=== PATIENT | male | born 1950 | race Caucasian/White ===

== ENCOUNTER 2024-03-25 09:04 | Observation (INO) ==
[2024-03-25] MEDS ORDERED: NS 1,000 ML IV 1,000 ML ONE (09:10)
[2024-03-25] MEDS: NS 1,000 ML IV 1,000 ML IV ONE (09:19)
--- NOTE | 2024-03-25 09:22 | DR.DIZZY ---
HPI Time seen Time Seen by Provider: 03/25/24 09:21 Complaint Chief Complaint Doctor Comments: Patient was discharged from the hospital on 18 March for dehydration he stated he was sent home felt better the next day after he began he started developing some weakness and lethargy and decreased appetite. Feels that he dehydrated again. Context Stroke Symptoms: None PMH PMH Past Surgical History: Yes Surgical History: Bowel Resection Family History Family Medical History: Cancer ROS Review of Systems Constitutional: Malaise, Weakness, Fatigue and Loss of Appetite Eyes: No Symptoms Reported ENTM: No Symptoms Reported Respiratoy: No Symptoms Reported Cardiovascular: No Symptoms Reported Gastrointestinal/Abdominal: No Symptoms Reported Genitourinary: No Symptoms Reported Neurological: No Symptoms Reported Musculoskeletal: No Symptoms Reported Integumentary: No Symptoms Reported Hematologic/Lymphatic: No Symptoms Reported Endocrine: No Symptoms Reported Psychiatric: Depression PE Vital Signs Vitals: Vital Signs Temperature 98.2 F Pulse Rate 85 Pulse Rate 82 Pulse Rate 82 Pulse Rate 90 Pulse Rate 80 Pulse Rate 88 Pulse Rate 88 Pulse Rate 79 Pulse Rate 83 Pulse Rate 85 Pulse Rate 83 Pulse Rate 85 Pulse Rate 83 Pulse Rate 83 Pulse Rate 82 Pulse Rate 81 Pulse Rate 82 Pulse Rate 81 Pulse Rate 87 Pulse Rate 83 Pulse Rate 89 Pulse Rate 103 Pulse Rate 128 Pulse Rate 104 Respiratory Rate 20 Respiratory Rate 19 Respiratory Rate 17 Respiratory Rate 20 Respiratory Rate 20 Respiratory Rate 19 Respiratory Rate 19 Respiratory Rate 20 Respiratory Rate 20 Respiratory Rate 17 Respiratory Rate 19 Respiratory Rate 19 Respiratory Rate 20 Respiratory Rate 19 Respiratory Rate 18 Respiratory Rate 18 Respiratory Rate 18 Respiratory Rate 17 Respiratory Rate 22 Respiratory Rate 16 Respiratory Rate 24 Respiratory Rate 24 Respiratory Rate 20 Respiratory Rate 25 Blood Pressure 100/70 Blood Pressure 149/77 Blood Pressure 104/67 Blood Pressure 108/76 Blood Pressure 105/67 Blood Pressure 106/64 Blood Pressure 112/67 Blood Pressure 113/69 Blood Pressure 119/73 Blood Pressure 111/76 Blood Pressure 111/76 Blood Pressure 117/85 O2 Sat by Pulse Oximetry 96 O2 Sat by Pulse Oximetry 95 O2 Sat by Pulse Oximetry 96 O2 Sat by Pulse Oximetry 96 O2 Sat by Pulse Oximetry 96 O2 Sat by Pulse Oximetry 96 O2 Sat by Pulse Oximetry 96 O2 Sat by Pulse Oximetry 96 O2 Sat by Pulse Oximetry 96 O2 Sat by Pulse Oximetry 96 O2 Sat by Pulse Oximetry 97 O2 Sat by Pulse Oximetry 96 O2 Sat by Pulse Oximetry 96 O2 Sat by Pulse Oximetry 96 O2 Sat by Pulse Oximetry 98 O2 Sat by Pulse Oximetry 97 O2 Sat by Pulse Oximetry 98 O2 Sat by Pulse Oximetry 99 O2 Sat by Pulse Oximetry 99 O2 Sat by Pulse Oximetry 98 O2 Sat by Pulse Oximetry 99 O2 Sat by Pulse Oximetry 94 O2 Sat by Pulse Oximetry 98 O2 Sat by Pulse Oximetry 99 General Limitations: Physical Limitation (weak due to dehydration) General Appearance: In Distress (mild distress) Head Head Exam: Normal Inspection, Atraumatic and Normocephalic Eyes Eye exam: Normal Appearance, PERRL and EOMI Pupils: Regular, Round: Bilateral ENT ENT Exam: Normal Exam and Normal Oropharynx Neck Neck Exam: Normal Inspection, Full ROM and Trachea Midline Chest Chest Inspection: Normal Inspection, Symmetric Chest Wall Rise and Tenderness Respiratory Respiratory Exam: Normal Lung Sounds Bilat Respiratory Exam: Bilateral: Clear to Auscultation Cardiovascular Cardiovascular Exam: Regular Rate and Normal Rhythm Abdominal Exam Abdominal Exam: Normal Inspection, Normal Bowel Sounds and Soft Rectal Rectal Exam: Deferred Extremeties Extremities Exam: Normal Inspection Back Back Exam: Normal Inspection Neurologic Neurological Exam: Alert, Oriented X3 and CN II-XII Intact Patient Oriented To: Person, Place and Time Speech: Fluid Speech Cranial Nerve Exam: EOM Function (II, III, IV, ): Normal Psychiatric Psychiatric Exam: Depressed Skin Skin Exam: Warm, Dry and Intact MDM Differential Diagnosis Differential Diagnosis: Dehydration, Electrolyte disorder and Other (renal insufficiency,malnutrition) COURSE Treatment Treatment: Patient may relatively stable during ER visit. We did give him a 1 L bolus of normal saline and he did seem to become less lethargic after that. We did lab work showing that he did have a BUN of 50 and creatinine was 2.74 and his GFR was 24 with this presentation of the patient numbers change a lot since last week with his BUN and creatinine going up so we did consult with the on- call physician Dr. Henry and we are going to admit the patient to observation for renal insufficiency, dehydration and malnutrition. The patient was told of the intent to admit to observation and was agreeable to the admission. ROR Labs Reviewed Laboratory Results Reviewed?: Yes 03/25/24 09:14 03/25/24 09:14 Laboratory: WBC 7.5 X10^3/uL (3.6-10.0) 03/25/24 09:14 RBC 4.56 X10^6/uL (4.7-6.0) L 03/25/24 09:14 Hgb 14.6 g/dL (13.5-18.0) 03/25/24 09:14 Hct 40.6 % (42.0-54.0) L 03/25/24 09:14 MCV 89.0 fL (80.0-100.0) 03/25/24 09:14 MCH 32.1 pg (27.0-34.0) 03/25/24 09:14 MCHC 36.1 g/dL (33.0-35.0) H 03/25/24 09:14 RDW 12.1 % (11.6-16.5) 03/25/24 09:14 Plt Count 209 X10^3/uL (150.0-450.0) 03/25/24 09:14 MPV 8.1 fL (7.4-11.0) 03/25/24 09:14 Neut % (Auto) 67.0 % (42.0-75.0) 03/25/24 09:14 Lymph % (Auto) 22.7 % (21.0-51.0) 03/25/24 09:14 [place] % (Auto) 9.1 % (0.0-13.0) 03/25/24 09:14 Eos % (Auto) 0.5 % (0.9-2.9) L 03/25/24 09:14 Baso % (Auto) 0.7 % (0.2-1.0) 03/25/24 09:14 Neut # (Auto) 5.1 x10^3/uL (2.2-4.8) H 03/25/24 09:14 Lymph # (Auto) 1.7 X10^3/uL (1.3-2.9) 03/25/24 09:14 [place] # (Auto) 0.7 x10^3/uL (0.3-0.8) 03/25/24 09:14 Eos # (Auto) 0.0 x10^3/uL (0.0-0.2) 03/25/24 09:14 Baso # (Auto) 0.0 X10^3/uL (0.0-0.1) 03/25/24 09:14 Absolute Nucleated RBC 0.0 /100WBC 03/25/24 09:14 Sodium 135 mmol/L (136-145) L 03/25/24 09:14 Corrected Sodium 135 mmol/L (136-145) L 03/25/24 09:14 Potassium 4.5 mmol/L (3.5-5.1) 03/25/24 09:14 Chloride 98 mmol/L (98-107) 03/25/24 09:14 Carbon Dioxide 21.3 mmol/L (21-32) 03/25/24 09:14 BUN 50 mg/dL (7-18) H 03/25/24 09:14 Creatinine 2.74 mg/dL (0.70-1.30) H 03/25/24 09:14 Est GFR (MDRD) Af Amer 30 (>60) L 03/25/24 09:14 Est GFR (MDRD) Non-Af 24 (>60) L 03/25/24 09:14 Glucose 118 mg/dL (65-99) H 03/25/24 09:14 Calcium 9.6 mg/dL (8.5-10.1) 03/25/24 09:14 Corrected Calcium TNP 03/25/24 09:14 Total Bilirubin 0.80 mg/dL (0.2-1.0) 03/25/24 09:14 AST 44 Units/L (15-37) H 03/25/24 09:14 ALT 53 Units/L (12-78) 03/25/24 09:14 Alkaline Phosphatase 264 Units/L (46-116) H 03/25/24 09:14 Total Protein 9.2 g/dL (6.4-8.2) H 03/25/24 09:14 Albumin 4.0 g/dL (3.4-5.0) 03/25/24 09:14 Globulin 5.2 g/dL (2.5-4.5) H 03/25/24 09:14 Albumin/Globulin Ratio 0.8 Ratio (1.1-2.1) L 03/25/24 09:14 Opioid Opioid Risk Tool Age (Ryan box if 16-45): No History of Preadolescent Sexual Abuse: No Total: 0 Total Score Risk Category: Low Risk Copyright: Andres ABBOTT predicting aberrant behaviors Discharge Plan Diagnosis Discharge Problem: Renal insufficiency, Dehydration, Malnutrition Discharge Plan Patient Disposition: 09 ADMITTED INPATIENT Condition: Stable Prescriptions: No Action methocarbamol 500 mg tablet 500 mg PO BID loperamide 2 mg capsule 4 mg PO TID diclofenac potassium 50 mg tablet 50 mg PO BID ferrous sulfate 325 mg (65 mg iron) tablet,delayed release (DR/EC) 325 mg PO QDAY eszopiclone 3 mg tablet 3 mg PO QPM PRN Health Concerns: Post Hospitalization: new medications and changes needed to prevent readmission or further decline. Pt educated and given instructions on all concerns. Plan of Treatment: Continue with present treatment and follow up plan. Pt is to keep follow up appointment as instructed and take medications as ordered. Orders to Discharge Patient Discharge Orders: Transfer (Routine); Ordered 03/25/24 Ordered By: Ramy Fernandez Follow ups/Referrals Follow ups/Referrals: FABIENNE VARGAS [Primary Care Provider] - 3 days Instructions Stand Alone Forms: Find Help Web Site, Post Hospital Follow Up Care
[2024-03-25 09:25] LABS: EOSINOPHILS % (AUTO) 0.5 % (0.9-2.9); LYMPHOCYTES # (AUTO) 1.7 X10^3/uL (1.3-2.9)
[2024-03-25 09:36] LABS: ALANINE AMINOTRANSFERASE 53 Units/L (12-78); ALKALINE PHOSPHATASE 264 Units/L (46-116); ASPARTATE AMINO TRANSFERASE 44 Units/L (15-37); BLOOD UREA NITROGEN 50 mg/dL (7-18); CALCIUM 9.6 mg/dL (8.5-10.1); CARBON DIOXIDE 21.3 mmol/L (21-32); CHLORIDE 98 mmol/L (98-107); COR NA(FOR HYPERGLY) 135 mmol/L (136-145); CREATININE 2.74 mg/dL (0.70-1.30); GLUCOSE 118 mg/dL (65-99); POTASSIUM 4.5 mmol/L (3.5-5.1); SODIUM 135 mmol/L (136-145); TOTAL PROTEIN 9.2 g/dL (6.4-8.2); eGFR NON BLACK RACES 24 (>60)
[2024-03-25 09:38] LABS: MONOCYTES # (AUTO) 0.7 x10^3/uL (0.3-0.8)
[2024-03-25 09:42] LABS: BASOPHILS % (AUTO) 0.7 % (0.2-1.0); HEMATOCRIT 40.6 % (42.0-54.0); HEMOGLOBIN 14.6 g/dL (13.5-18.0); LYMPHOCYTES % (AUTO) 22.7 % (21.0-51.0); MEAN CORPUSCULAR HEMOGLOBIN 32.1 pg (27.0-34.0); MEAN CORPUSCULAR HGB CONC 36.1 g/dL (33.0-35.0); MEAN PLATELET VOLUME 8.1 fL (7.4-11.0); MONOCYTES % (AUTO) 9.1 % (0.0-13.0); NEUTROPHILS # (AUTO) 5.1 x10^3/uL (2.2-4.8); PLATELET COUNT 209 X10^3/uL (150.0-450.0); RED BLOOD COUNT 4.56 X10^6/uL (4.7-6.0); RED CELL DISTRIBUTION WIDTH 12.1 % (11.6-16.5); WHITE BLOOD COUNT 7.5 X10^3/uL (3.6-10.0)
[2024-03-25] MEDS ORDERED: AMBIEN PO PRN (14:46)
[2024-03-25] MEDS: NS 1,000 ML IV 1,000 ML IV SCH (15:01)
[2024-03-25 15:48] VITALS: BMI 20.7
[2024-03-25] MEDS: ROBAXIN PO SCH (20:43)
[2024-03-25] MEDS: IMODIUM CAP 2 MG PO SCH (21:06)
[2024-03-26 05:29] LABS: BASOPHILS % (AUTO) 0.4 % (0.2-1.0); EOSINOPHILS % (AUTO) 0.3 % (0.9-2.9); HEMOGLOBIN 12.3 g/dL (13.5-18.0); LYMPHOCYTES # (AUTO) 1.7 X10^3/uL (1.3-2.9); LYMPHOCYTES % (AUTO) 30.7 % (21.0-51.0); MEAN CORPUSCULAR HEMOGLOBIN 32.2 pg (27.0-34.0); MEAN CORPUSCULAR HGB CONC 36.1 g/dL (33.0-35.0); MEAN PLATELET VOLUME 8.4 fL (7.4-11.0); MONOCYTES # (AUTO) 0.6 x10^3/uL (0.3-0.8); MONOCYTES % (AUTO) 10.6 % (0.0-13.0); NEUTROPHILS # (AUTO) 3.1 x10^3/uL (2.2-4.8); PLATELET COUNT 160 X10^3/uL (150.0-450.0); RED BLOOD COUNT 3.82 X10^6/uL (4.7-6.0); WHITE BLOOD COUNT 5.4 X10^3/uL (3.6-10.0)
[2024-03-26 05:39] LABS: ALANINE AMINOTRANSFERASE 39 Units/L (12-78); ALBUMIN 3.2 g/dL (3.4-5.0); ALKALINE PHOSPHATASE 197 Units/L (46-116); ASPARTATE AMINO TRANSFERASE 32 Units/L (15-37); BLOOD UREA NITROGEN 42 mg/dL (7-18); CALCIUM 8.6 mg/dL (8.5-10.1); CARBON DIOXIDE 21.7 mmol/L (21-32); CHLORIDE 103 mmol/L (98-107); COR CA(FOR HYPOALB) 9.2 mg/dL (8.5-10.1); CREATININE 1.96 mg/dL (0.70-1.30); GLUCOSE 88 mg/dL (65-99); POTASSIUM 4.3 mmol/L (3.5-5.1); SODIUM 137 mmol/L (136-145); TOTAL PROTEIN 7.5 g/dL (6.4-8.2); eGFR NON BLACK RACES 36 (>60)
[2024-03-26] MEDS: FERROUS GLUCONATE PO SCH (08:14)
--- NOTE | 2024-03-26 15:05 | DR.H&P ---
H&P History & Physical for Day of: H&P Date: 03/26/24 Chief Complaint Chief Complaint: Dizziness and weakness History of Present Illness History of Present Illness: Patient seen with spouse and nurse at bedside for a.m. rounds. Went back to the ER yesterday due to worsening weakness, p.o. intake, and dizziness. Was just at the facility last week for similar. 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 His IV infusions had been moved out to once every 4 weeks until the holidays. He had not had an infusion in over 5 weeks at the time of his admission last week. At the time of his discharge he was eating, drinking, and able to keep up with his demands. Day after discharge he was able to eat breakfast but then had had very poor p.o. intake since that time. Does report that his ears feel full, he has had a slight nonproductive cough, and his throat feels dry. He normally feels complete resolution of the dry throat after single bag of fluid. In the ER serum creatinine was elevated greater than 2 with improvement this morning. ROS: 12 point ROS negative except as noted in HPI. PE: Thin, elderly male in no acute distress. Hearing intact conversation. Head NCAT. Extract movements grossly normal. Drying of the oral mucosa with no erythema or postnasal drainage. Heart regular rate and rhythm. Lungs are clear bilaterally but diminished. Belly is soft, nontender, nondistended with bowel sounds present colostomy in place. Mood and affect are appropriate with slight irritability. Past Medical History Past Medical History: Anemia and Depression Additional Medical History: CARDIAC ARRHYTHMIA, COLON CANCER Past Surgical History Surgical History: Bowel Resection Family History Family Medical History: Cancer Social History Does patient currently use any type of tobacco product: No Have you used tobacco products in the last 12 months: No Type of Tobacco Use: None Does any household member use tobacco: No Alcohol Use: None Drug Use: None Medications Home Medications: Home Medications Medication Instructions Recorded Confirmed Type diclofenac potassium 50 mg tablet 50 mg PO BID 03/18/24 03/25/24 History eszopiclone 3 mg tablet 3 mg PO QPM PRN 03/18/24 03/25/24 History ferrous sulfate 325 mg (65 mg 325 mg PO QDAY 03/18/24 03/25/24 History iron) tablet,delayed release loperamide 2 mg capsule 4 mg PO TID 03/18/24 03/25/24 History methocarbamol 500 mg tablet 500 mg PO BID 03/18/24 03/25/24 History Allergies Allergies Allergy/AdvReac Type Severity Reaction Status Date / Time No Known Drug Allergies Allergy Verified 03/25/24 09:07 [NKDA] Labs 03/26/24 04:27 03/26/24 04:27 Labs: Laboratory WBC 5.4 X10^3/uL (3.6-10.0) 03/26/24 04:27 RBC 3.82 X10^6/uL (4.7-6.0) L 03/26/24 04:27 Hgb 12.3 g/dL (13.5-18.0) L D 03/26/24 04:27 Hct 34.0 % (42.0-54.0) L 03/26/24 04:27 MCV 89.0 fL (80.0-100.0) 03/26/24 04: MCH 32.2 pg (27.0-34.0) 03/26/24 04:27 MCHC 36.1 g/dL (33.0-35.0) H 03/26/24 04:27 RDW 12.0 % (11.6-16.5) 03/26/24 04:27 Plt Count 160 X10^3/uL (150.0-450.0) 03/26/24 04:27 MPV 8.4 fL (7.4-11.0) 03/26/24 04:27 Neut % (Auto) 58.0 % (42.0-75.0) 03/26/24 04:27 Lymph % (Auto) 30.7 % (21.0-51.0) 03/26/24 04:27 [place] % (Auto) 10.6 % (0.0-13.0) 03/26/24 04:27 Eos % (Auto) 0.3 % (0.9-2.9) L 03/26/24 04:27 Baso % (Auto) 0.4 % (0.2-1.0) 03/26/24 04:27 Neut # (Auto) 3.1 x10^3/uL (2.2-4.8) 03/26/24 04:27 Lymph # (Auto) 1.7 X10^3/uL (1.3-2.9) 03/26/24 04:27 [place] # (Auto) 0.6 x10^3/uL (0.3-0.8) 03/26/24 04:27 Eos # (Auto) 0.0 x10^3/uL (0.0-0.2) 03/26/24 04:27 Baso # (Auto) 0.0 X10^3/uL (0.0-0.1) 03/26/24 04:27 Absolute Nucleated RBC 0.0 /100WBC 03/26/24 04:27 Sodium 137 mmol/L (136-145) 03/26/24 04:27 Corrected Sodium TNP 03/26/24 04:27 Potassium 4.3 mmol/L (3.5-5.1) 03/26/24 04:27 Chloride 103 mmol/L (98-107) 03/26/24 04:27 Carbon Dioxide 21.7 mmol/L (21-32) 03/26/24 04:27 BUN 42 mg/dL (7-18) H 03/26/24 04:27 Creatinine 1.96 mg/dL (0.70-1.30) H 03/26/24 04:27 Est GFR (MDRD) Af Amer 43 (>60) L 03/26/24 04:27 Est GFR (MDRD) Non-Af 36 (>60) L 03/26/24 04:27 Glucose 88 mg/dL (65-99) 03/26/24 04:27 Calcium 8.6 mg/dL (8.5-10.1) 03/26/24 04:27 Corrected Calcium 9.2 mg/dL (8.5-10.1) 03/26/24 04:27 Total Bilirubin 0.80 mg/dL (0.2-1.0) 03/26/24 04:27 AST 32 Units/L (15-37) 03/26/24 04:27 ALT 39 Units/L (12-78) 03/26/24 04:27 Alkaline Phosphatase 197 Units/L (46-116) H 03/26/24 04:27 Total Protein 7.5 g/dL (6.4-8.2) 03/26/24 04:27 Albumin 3.2 g/dL (3.4-5.0) L 03/26/24 04:27 Globulin 4.3 g/dL (2.5-4.5) 03/26/24 04:27 Albumin/Globulin Ratio 0.7 Ratio (1.1-2.1) L 03/26/24 04:27 Physical Exam Vital Signs: Vital Signs Temperature 98.1 F Temperature 98.1 F Pulse Rate [Left Brachial] 82 Pulse Rate [Left Brachial] 81 Respiratory Rate 20 Respiratory Rate 19 Blood Pressure [Right Arm] 97/63 Blood Pressure [Right Arm] 103/63 O2 Sat by Pulse Oximetry 96 O2 Sat by Pulse Oximetry 94 Assessment/Plan (1) Acute renal failure: Qualifiers: Acute renal failure type: unspecified Qualified Code(s): N17.9 - Acute kidney failure, unspecified Narrative Support Text: Improving. Status: Acute (2) Dehydration: Narrative Support Text: Continue IV fluids. Push p.o. as well Status: Acute (3) Malnutrition: Qualifiers: Malnutrition type: protein-calorie malnutrition Protein-calorie malnutrition severity: mild Qualified Code(s): E44.1 - Mild protein-calorie malnutrition Narrative Support Text: Was able to eat breakfast today. Appetite seems better. Status: Acute (4) Acquired short bowel syndrome: Narrative Support Text: Per surgeon. Status: Chronic (5) Generalized weakness: Narrative Support Text: Improving with hydration. Status: Acute
[2024-03-26] MEDS: TYLENOL 325 MG TAB PO PRN (18:02)
[2024-03-27 05:01] LABS: BASOPHILS % (AUTO) 0.6 % (0.2-1.0); EOSINOPHILS # (AUTO) 0.1 x10^3/uL (0.0-0.2); EOSINOPHILS % (AUTO) 1.4 % (0.9-2.9); HEMATOCRIT 29.6 % (42.0-54.0); HEMOGLOBIN 10.8 g/dL (13.5-18.0); LYMPHOCYTES # (AUTO) 1.5 X10^3/uL (1.3-2.9); MEAN CORPUSCULAR HEMOGLOBIN 32.4 pg (27.0-34.0); MEAN PLATELET VOLUME 7.9 fL (7.4-11.0); MONOCYTES # (AUTO) 0.5 x10^3/uL (0.3-0.8)
[2024-03-27 05:04] LABS: LYMPHOCYTES % (AUTO) 38.5 % (21.0-51.0); MEAN CORPUSCULAR HGB CONC 36.6 g/dL (33.0-35.0); MEAN CORPUSCULAR VOLUME 88.6 fL (80.0-100.0); MONOCYTES % (AUTO) 12.4 % (0.0-13.0); NEUTROPHILS # (AUTO) 1.8 x10^3/uL (2.2-4.8); NEUTROPHILS % (AUTO) 47.1 % (42.0-75.0); PLATELET COUNT 153 X10^3/uL (150.0-450.0); RED BLOOD COUNT 3.34 X10^6/uL (4.7-6.0); RED CELL DISTRIBUTION WIDTH 11.9 % (11.6-16.5); WHITE BLOOD COUNT 3.9 X10^3/uL (3.6-10.0)
[2024-03-27 05:07] LABS: ALANINE AMINOTRANSFERASE 43 Units/L (12-78); ALBUMIN 2.8 g/dL (3.4-5.0); ALKALINE PHOSPHATASE 185 Units/L (46-116); ASPARTATE AMINO TRANSFERASE 39 Units/L (15-37); BLOOD UREA NITROGEN 29 mg/dL (7-18); CALCIUM 8.2 mg/dL (8.5-10.1); CARBON DIOXIDE 25.6 mmol/L (21-32); CHLORIDE 106 mmol/L (98-107); COR CA(FOR HYPOALB) 9.2 mg/dL (8.5-10.1); CREATININE 1.65 mg/dL (0.70-1.30); GLUCOSE 88 mg/dL (65-99); POTASSIUM 4.4 mmol/L (3.5-5.1); SODIUM 140 mmol/L (136-145); TOTAL PROTEIN 6.6 g/dL (6.4-8.2); eGFR NON BLACK RACES 44 (>60)
[2024-03-27 09:14] VITALS: RESP 19; O2SAT 96
[2024-03-27 13:31] VITALS: BP 111/65; PULSE 70; TEMP 98.2
--- NOTE | 2024-03-29 10:49 | PCM.DCPLAN ---
DISCHARGE SUMMARY Admission Date Date of Admission: 03/25/24 Discharge Date Discharge Date: 03/27/24 Admission Diagnoses (1) Acute renal failure: Status: Acute (2) Dehydration: Status: Acute (3) Malnutrition: Status: Acute (4) Acquired short bowel syndrome: Status: Chronic (5) Generalized weakness: Status: Acute Discharge Medications Discharge Medications: Prescriptions: Hospital Course Vital Signs: Vital Signs Temperature 98.2 F Temperature 98.7 F Pulse Rate [Left Brachial] 70 Pulse Rate [Left Brachial] 84 Respiratory Rate 19 Respiratory Rate 19 Blood Pressure [Right Arm] 111/65 Blood Pressure [Right Arm] 98/54 O2 Sat by Pulse Oximetry 96 O2 Sat by Pulse Oximetry 96 Latest Lab Results: Laboratory Last Values WBC 3.9 X10^3/uL (3.6-10.0) 03/27/24 04:33 RBC 3.34 X10^6/uL (4.7-6.0) L 03/27/24 04:33 Hgb 10.8 g/dL (13.5-18.0) L 03/27/24 04:33 Hct 29.6 % (42.0-54.0) L 03/27/24 04:33 MCV 88.6 fL (80.0-100.0) 03/27/24 04:33 MCH 32.4 pg (27.0-34.0) 03/27/24 04:33 MCHC 36.6 g/dL (33.0-35.0) H 03/27/24 04:33 RDW 11.9 % (11.6-16.5) 03/27/24 04:33 Plt Count 153 X10^3/uL (150.0-450.0) 03/27/24 04:33 MPV 7.9 fL (7.4-11.0) 03/27/24 04:33 Neut % (Auto) 47.1 % (42.0-75.0) 03/27/24 04:33 Lymph % (Auto) 38.5 % (21.0-51.0) 03/27/24 04:33 [place] % (Auto) 12.4 % (0.0-13.0) 03/27/24 04:33 Eos % (Auto) 1.4 % (0.9-2.9) 03/27/24 04:33 Baso % (Auto) 0.6 % (0.2-1.0) 03/27/24 04:33 Neut # (Auto) 1.8 x10^3/uL (2.2-4.8) L 03/27/24 04:33 Lymph # (Auto) 1.5 X10^3/uL (1.3-2.9) 03/27/24 04:33 [place] # (Auto) 0.5 x10^3/uL (0.3-0.8) 03/27/24 04:33 Eos # (Auto) 0.1 x10^3/uL (0.0-0.2) 03/27/24 04:33 Baso # (Auto) 0.0 X10^3/uL (0.0-0.1) 03/27/24 04:33 Absolute Nucleated RBC 0.1 /100WBC 03/27/24 04:33 Sodium 140 mmol/L (136-145) 03/27/24 04:33 Corrected Sodium TNP 03/27/24 04:33 Potassium 4.4 mmol/L (3.5-5.1) 03/27/24 04:33 Chloride 106 mmol/L (98-107) 03/27/24 04:33 Carbon Dioxide 25.6 mmol/L (21-32) 03/27/24 04:33 BUN 29 mg/dL (7-18) H 03/27/24 04:33 Creatinine 1.65 mg/dL (0.70-1.30) H 03/27/24 04:33 Est GFR (MDRD) Af Amer 53 (>60) L 03/27/24 04:33 Est GFR (MDRD) Non-Af 44 (>60) L 03/27/24 04:33 Glucose 88 mg/dL (65-99) 03/27/24 04:33 Calcium 8.2 mg/dL (8.5-10.1) L 03/27/24 04:33 Corrected Calcium 9.2 mg/dL (8.5-10.1) 03/27/24 04:33 Total Bilirubin 0.70 mg/dL (0.2-1.0) 03/27/24 04:33 AST 39 Units/L (15-37) H 03/27/24 04:33 ALT 43 Units/L (12-78) 03/27/24 04:33 Alkaline Phosphatase 185 Units/L (46-116) H 03/27/24 04:33 Total Protein 6.6 g/dL (6.4-8.2) 03/27/24 04:33 Albumin 2.8 g/dL (3.4-5.0) L 03/27/24 04:33 Globulin 3.8 g/dL (2.5-4.5) 03/27/24 04:33 Albumin/Globulin Ratio 0.7 Ratio (1.1-2.1) L 03/27/24 04:33 Hospital Course: Patient admitted due to OWEN secondary to poor p.o. intake following short gut syndrome and recent admission for same. Patient responded very well to IV fluids. He was able to tolerate his normal diet. Discharged home in improved, stable condition with plans for his regular outpatient infusion. He was can have discussion with his PCP about increasing his infusion schedule.
== END 2024-03-26 13:38 | disposition home or self-care (01) ==
LOC: MED/SURG 09:04 → ER 09:04 → MED/SURG 14:43
PROVIDERS: ADMIT Family Medicine; ATTEND Internal Medicine
DX: N17.8 Other acute kidney failure; R53.1 Weakness; E86.0 Dehydration; R42 Dizziness and giddiness; E87.1 Hypo-osmolality and hyponatremia; K90.829 Short bowel syndrome, unspecified

== ENCOUNTER 2024-05-05 11:21 | Inpatient (IN) ==
[2024-05-05] MEDS ORDERED: MORPHINE SULFATE INJ 2 MG INJ IVP PRN (13:02)
[2024-05-05 13:16] LABS: BASOPHILS # (AUTO) 0.1 X10^3/uL (0.0-0.1); BASOPHILS % (AUTO) 0.9 % (0.2-1.0); EOSINOPHILS # (AUTO) 0.4 x10^3/uL (0.0-0.2); EOSINOPHILS % (AUTO) 4.7 % (0.9-2.9); HEMATOCRIT 40.2 % (42.0-54.0); HEMOGLOBIN 14.3 g/dL (13.5-18.0); LYMPHOCYTES # (AUTO) 2.2 X10^3/uL (1.3-2.9); LYMPHOCYTES % (AUTO) 26.8 % (21.0-51.0); MEAN CORPUSCULAR HEMOGLOBIN 32.6 pg (27.0-34.0); MEAN CORPUSCULAR HGB CONC 35.5 g/dL (33.0-35.0); MEAN CORPUSCULAR VOLUME 91.8 fL (80.0-100.0); MEAN PLATELET VOLUME 8.4 fL (7.4-11.0); MONOCYTES # (AUTO) 0.9 x10^3/uL (0.3-0.8); MONOCYTES % (AUTO) 10.5 % (0.0-13.0); NEUTROPHILS # (AUTO) 4.7 x10^3/uL (2.2-4.8); NEUTROPHILS % (AUTO) 57.1 % (42.0-75.0); PLATELET COUNT 293 X10^3/uL (150.0-450.0); RED BLOOD COUNT 4.38 X10^6/uL (4.7-6.0); WHITE BLOOD COUNT 8.3 X10^3/uL (3.6-10.0)
[2024-05-05] MEDS: LR 1,000 ML IV 1,000 ML with MVI INJ (ADULT) 10 ML IV SCH (13:26)
[2024-05-05] MEDS: NS 500 ML IV 500 ML IV ONE (13:26)
[2024-05-05] MEDS: LOMOTIL PO SCH (13:27)
[2024-05-05] MEDS: IMODIUM CAP 2 MG PO SCH (13:27)
[2024-05-05 13:30] LABS: ALANINE AMINOTRANSFERASE 148 Units/L (12-78); ALBUMIN 4.2 g/dL (3.4-5.0); ALKALINE PHOSPHATASE 218 Units/L (46-116); AMYLASE 194 Units/L (25-115); ASPARTATE AMINO TRANSFERASE 69 Units/L (15-37); BLOOD UREA NITROGEN 71 mg/dL (7-18); CALCIUM 10.1 mg/dL (8.5-10.1); CARBON DIOXIDE 24.8 mmol/L (21-32); CHLORIDE 97 mmol/L (98-107); CREATININE 5.13 mg/dL (0.70-1.30); GLUCOSE 110 mg/dL (65-99); POTASSIUM 4.5 mmol/L (3.5-5.1); SODIUM 134 mmol/L (136-145); TOTAL PROTEIN 9.4 g/dL (6.4-8.2); eGFR NON BLACK RACES 12 (>60)
[2024-05-05 13:33] LABS: LIPASE 283 Units/L (16-77)
[2024-05-05 14:07] LABS: IRON 113 ug/dL (50-175); TOTAL IRON BINDING CAPACITY 372 ug/dL (250-450)
[2024-05-05 16:14] LABS: BILIRUBIN,URINE NEGATIVE (NEGATIVE); BLOOD/HEMOGLOBIN,URINE NEGATIVE (NEGATIVE); GLUCOSE, URINE NEGATIVE (NEGATIVE); KETONES,URINE NEGATIVE (NEGATIVE); LEUKOCYTE ESTERASE ,URINE NEGATIVE (NEGATIVE); NITRITES,URINE NEGATIVE (NEGATIVE); PROTEIN,URINE 2+ (NEGATIVE); UROBILINOGEN,URINE NORMAL (NORMAL)
[2024-05-05] MEDS ORDERED: NS 500 ML IV 500 ML IV ONE (16:25)
[2024-05-05] MEDS: NS 1,000 ML IV 500 ML IV ONE (16:25)
[2024-05-05 16:32] LABS: APPEARANCE,URINE CLEAR (CLEAR); BACTERIA,URINE TRACE /HPF (NEGATIVE); COLOR,URINE YELLOW (YELLOW); RBC,URINE 0-2 /HPF (0-3); SQUAMOUS EPITHELIAL CELL,UR RARE /HPF (NEGATIVE)
[2024-05-05 16:33] LABS: HYALINE CASTS, URINE FEW /LPF (NEGATIVE)
[2024-05-05] MEDS: NS 1,000 ML IV 2,000 ML IV ONE (18:30)
[2024-05-05] MEDS: NS 1,000 ML IV 1,000 ML with MVI INJ (ADULT) 10 ML IV SCH (20:36)
[2024-05-05] MEDS ORDERED: NS 1,000 ML IV 1,000 ML IV SCH (22:40)
[2024-05-05] MEDS: TYLENOL 325 MG TAB PO PRN (22:58)
[2024-05-06 04:57] LABS: BASOPHILS % (AUTO) 0.8 % (0.2-1.0); EOSINOPHILS # (AUTO) 0.4 x10^3/uL (0.0-0.2); EOSINOPHILS % (AUTO) 7.4 % (0.9-2.9); HEMATOCRIT 30.3 % (42.0-54.0); LYMPHOCYTES # (AUTO) 0.9 X10^3/uL (1.3-2.9); LYMPHOCYTES % (AUTO) 18.7 % (21.0-51.0); MEAN CORPUSCULAR HEMOGLOBIN 32.4 pg (27.0-34.0); MEAN CORPUSCULAR HGB CONC 35.1 g/dL (33.0-35.0); MEAN CORPUSCULAR VOLUME 92.3 fL (80.0-100.0); MEAN PLATELET VOLUME 8.2 fL (7.4-11.0); MONOCYTES # (AUTO) 0.5 x10^3/uL (0.3-0.8); MONOCYTES % (AUTO) 9.3 % (0.0-13.0); NEUTROPHILS # (AUTO) 3.2 x10^3/uL (2.2-4.8); NEUTROPHILS % (AUTO) 63.8 % (42.0-75.0); PLATELET COUNT 195 X10^3/uL (150.0-450.0); RED BLOOD COUNT 3.29 X10^6/uL (4.7-6.0); RED CELL DISTRIBUTION WIDTH 12.9 % (11.6-16.5)
[2024-05-06 05:03] LABS: ALANINE AMINOTRANSFERASE 100 Units/L (12-78); ALBUMIN 2.9 g/dL (3.4-5.0); ALKALINE PHOSPHATASE 144 Units/L (46-116); ASPARTATE AMINO TRANSFERASE 47 Units/L (15-37); BLOOD UREA NITROGEN 54 mg/dL (7-18); CALCIUM 8.3 mg/dL (8.5-10.1); CARBON DIOXIDE 24.2 mmol/L (21-32); CHLORIDE 106 mmol/L (98-107); COR CA(FOR HYPOALB) 9.2 mg/dL (8.5-10.1); CREATININE 2.95 mg/dL (0.70-1.30); GLUCOSE 88 mg/dL (65-99); POTASSIUM 4.6 mmol/L (3.5-5.1); SODIUM 140 mmol/L (136-145); TOTAL PROTEIN 6.6 g/dL (6.4-8.2); eGFR NON BLACK RACES 22 (>60)
[2024-05-06 05:19] LABS: HEMOGLOBIN 10.7 g/dL (13.5-18.0)
[2024-05-06 07:21] VITALS: BMI 20.9
[2024-05-06] MEDS ORDERED: AMBIEN PO PRN (08:17)
[2024-05-06] MEDS: ROBAXIN PO SCH (08:54)
--- NOTE | 2024-05-06 10:00 | DR.PROGNOT ---
HOSPITAL PROGRESS NOTE Progress Note for Day of: Progress Note Date: 05/06/24 Chief Complaint Chief Complaint: feeling better today , more alert and active . mild mid abdominal pain , no nausea or vomiting . stoma out put is high still . WBC 5, Hgb 10.7 plat 195 ,BUN 53, Creat 2.95 , Albumin 2.9 , Na 140, K 4.9 .. slight elevated LFT , normal Bilirubin . soft, flat abdomen , BS+ Past Medical Family Social History Past Med/Fam/Surg Hx: No changes since H&P Allergies: Allergies No Known Drug Allergies [NKDA] Allergy (Verified 05/05/24 12:56) Vital Signs Vital Signs: Vital Signs Temperature 97.5 F Pulse Rate [Left] 70 Respiratory Rate 18 Respiratory Rate 16 Blood Pressure [Left Arm] 94/62 O2 Sat by Pulse Oximetry 97 Physical Exam Oriented: Normal Eyes: Normal Ear: Normal Nose: Normal Throat: Normal Respiratory: Normal GI:Auscultation: Normal GI:Palpation: Other (soft, flat with moderate mid abdominal tenderness Lt side . BS+) Speech Pattern: Clear and Appropriate Laboratory and Diagnostics 05/06/24 04:36 05/06/24 04:36 Labs: Laboratory WBC 5.0 X10^3/uL (3.6-10.0) 05/06/24 04:36 RBC 3.29 X10^6/uL (4.7-6.0) L 05/06/24 04:36 Hgb 10.7 g/dL (13.5-18.0) L D 05/06/24 04:36 Hct 30.3 % (42.0-54.0) L 05/06/24 04:36 MCV 92.3 fL (80.0-100.0) 05/06/24 04:36 MCH 32.4 pg (27.0-34.0) 05/06/24 04:36 MCHC 35.1 g/dL (33.0-35.0) H 05/06/24 04:36 RDW 12.9 % (11.6-16.5) 05/06/24 04:36 Plt Count 195 X10^3/uL (150.0-450.0) 05/06/24 04:36 MPV 8.2 fL (7.4-11.0) 05/06/24 04:36 Neut % (Auto) 63.8 % (42.0-75.0) 05/06/24 04:36 Lymph % (Auto) 18.7 % (21.0-51.0) L 05/06/24 04:36 [place] % (Auto) 9.3 % (0.0-13.0) 05/06/24 04:36 Eos % (Auto) 7.4 % (0.9-2.9) H 05/06/24 04:36 Baso % (Auto) 0.8 % (0.2-1.0) 05/06/24 04:36 Neut # (Auto) 3.2 x10^3/uL (2.2-4.8) 05/06/24 04:36 Lymph # (Auto) 0.9 X10^3/uL (1.3-2.9) L 05/06/24 04:36 [place] # (Auto) 0.5 x10^3/uL (0.3-0.8) 05/06/24 04:36 Eos # (Auto) 0.4 x10^3/uL (0.0-0.2) H 05/06/24 04:36 Baso # (Auto) 0.0 X10^3/uL (0.0-0.1) 05/06/24 04:36 Absolute Nucleated RBC 0.1 /100WBC 05/06/24 04:36 Sodium 140 mmol/L (136-145) 05/06/24 04:36 Corrected Sodium TNP 05/06/24 04:36 Potassium 4.6 mmol/L (3.5-5.1) 05/06/24 04:36 Chloride 106 mmol/L (98-107) 05/06/24 04:36 Carbon Dioxide 24.2 mmol/L (21-32) 05/06/24 04:36 BUN 54 mg/dL (7-18) H 05/06/24 04:36 Creatinine 2.95 mg/dL (0.70-1.30) H 05/06/24 04:36 Est GFR (MDRD) Af Amer 27 (>60) L 05/06/24 04:36 Est GFR (MDRD) Non-Af 22 (>60) L 05/06/24 04:36 Glucose 88 mg/dL (65-99) 05/06/24 04:36 Lactic Acid 1.0 mmol/L (0.4-2.0) 05/05/24 16:33 Calcium 8.3 mg/dL (8.5-10.1) L 05/06/24 04:36 Corrected Calcium 9.2 mg/dL (8.5-10.1) 05/06/24 04:36 Iron 113 ug/dL (50-175) 05/05/24 13:00 TIBC 372 ug/dL (250-450) 05/05/24 13:00 Ferritin 624 ng/mL (26-388) H 05/05/24 13:00 Total Bilirubin 1.00 mg/dL (0.2-1.0) 05/06/24 04:36 AST 47 Units/L (15-37) H 05/06/24 04:36 ALT 100 Units/L (12-78) H 05/06/24 04:36 Alkaline Phosphatase 144 Units/L (46-116) H 05/06/24 04:36 Total Protein 6.6 g/dL (6.4-8.2) 05/06/24 04:36 Albumin 2.9 g/dL (3.4-5.0) L 05/06/24 04:36 Globulin 3.7 g/dL (2.5-4.5) 05/06/24 04:36 Albumin/Globulin Ratio 0.8 Ratio (1.1-2.1) L 05/06/24 04:36 Amylase 194 Units/L (25-115) H 05/05/24 13:00 Lipase 283 Units/L (16-77) H 05/05/24 13:00 Vitamin B12 1223 pg/mL (193-986) H 05/05/24 13:00 Folate > 20.0 ng/mL (>8.6) 05/05/24 13:00 Specimen Type Clean catch urine 05/05/24 15:40 Urine Color Yellow (YELLOW) 05/05/24 15:40 Urine Appearance Clear (CLEAR) 05/05/24 15:40 Urine pH 5.0 (5.0 - 8.0) 05/05/24 15:40 Ur Specific [place] 1.030 (1.000-1.030) 05/05/24 15:40 Urine Protein 2+ (NEGATIVE) 05/05/24 15:40 Urine Glucose (UA) Negative (NEGATIVE) 05/05/24 15:40 Urine Ketones Negative (NEGATIVE) 05/05/24 15:40 Urine Blood Negative (NEGATIVE) 05/05/24 15:40 Urine Nitrite Negative (NEGATIVE) 05/05/24 15:40 Urine Bilirubin Negative (NEGATIVE) 05/05/24 15:40 Urine Urobilinogen Normal (NORMAL) 05/05/24 15:40 Ur Leukocyte Esterase Negative (NEGATIVE) 05/05/24 15:40 Urine RBC 0-2 /HPF (0-3) 05/05/24 15:40 Urine WBC 3-5 /HPF (0-5) 05/05/24 15:40 Ur Squamous Epith Cells Rare /HPF (NEGATIVE) 05/05/24 15:40 Amorphous Sediment Trace /HPF (NEGATIVE) 05/05/24 15:40 Urine Bacteria Trace /HPF (NEGATIVE) 05/05/24 15:40 Hyaline Casts Few /LPF (NEGATIVE) 05/05/24 15:40 Ur Culture Indicated? No/not indicated 05/05/24 15:40 Assessment and Plan 1: dehydration , renal failure , on IVF 2: short gut syndrome requires out Pt infusion on a weekly bases .high out put stoma drainage , on Imodium and [place] TID . no need for TPN now . to advance diet . 3: colon Ca. to obtain CEA
[2024-05-06] MEDS ORDERED: NORCO 5/325 MG TAB PO PRN (10:58)
[2024-05-07] MEDS: ZOFRAN INJ 4 MG VIAL IVP PRN (02:39)
[2024-05-07 05:54] LABS: BASOPHILS % (AUTO) 0.8 % (0.2-1.0); EOSINOPHILS # (AUTO) 0.3 x10^3/uL (0.0-0.2); HEMATOCRIT 29.9 % (42.0-54.0); HEMOGLOBIN 10.5 g/dL (13.5-18.0); LYMPHOCYTES # (AUTO) 0.9 X10^3/uL (1.3-2.9); LYMPHOCYTES % (AUTO) 18.7 % (21.0-51.0); MEAN CORPUSCULAR HEMOGLOBIN 32.8 pg (27.0-34.0); MEAN CORPUSCULAR HGB CONC 35.3 g/dL (33.0-35.0); MEAN CORPUSCULAR VOLUME 92.9 fL (80.0-100.0); MEAN PLATELET VOLUME 8.7 fL (7.4-11.0); MONOCYTES # (AUTO) 0.5 x10^3/uL (0.3-0.8); MONOCYTES % (AUTO) 9.8 % (0.0-13.0); NEUTROPHILS # (AUTO) 3.3 x10^3/uL (2.2-4.8); NEUTROPHILS % (AUTO) 64.7 % (42.0-75.0); PLATELET COUNT 175 X10^3/uL (150.0-450.0); RED BLOOD COUNT 3.22 X10^6/uL (4.7-6.0); WHITE BLOOD COUNT 5.1 X10^3/uL (3.6-10.0)
[2024-05-07 06:10] LABS: ALANINE AMINOTRANSFERASE 88 Units/L (12-78); ALBUMIN 3.1 g/dL (3.4-5.0); ALKALINE PHOSPHATASE 141 Units/L (46-116); ASPARTATE AMINO TRANSFERASE 43 Units/L (15-37); BLOOD UREA NITROGEN 27 mg/dL (7-18); CALCIUM 8.6 mg/dL (8.5-10.1); CARBON DIOXIDE 23.4 mmol/L (21-32); CHLORIDE 109 mmol/L (98-107); COR CA(FOR HYPOALB) 9.3 mg/dL (8.5-10.1); CREATININE 1.57 mg/dL (0.70-1.30); GLUCOSE 91 mg/dL (65-99); POTASSIUM 4.2 mmol/L (3.5-5.1); SODIUM 141 mmol/L (136-145); TOTAL PROTEIN 6.6 g/dL (6.4-8.2); eGFR NON BLACK RACES 46 (>60)
[2024-05-07] MEDS: BENTYL CAP 10 MG PO SCH (16:28)
[2024-05-08 00:37] VITALS: O2SAT 98
[2024-05-08 06:08] LABS: HEMOGLOBIN 10.2 g/dL (13.5-18.0); RED BLOOD COUNT 3.09 X10^6/uL (4.7-6.0)
[2024-05-08 06:13] LABS: BASOPHILS % (AUTO) 0.9 % (0.2-1.0); EOSINOPHILS # (AUTO) 0.3 x10^3/uL (0.0-0.2); EOSINOPHILS % (AUTO) 6.2 % (0.9-2.9); HEMATOCRIT 28.4 % (42.0-54.0); LYMPHOCYTES # (AUTO) 1.1 X10^3/uL (1.3-2.9); LYMPHOCYTES % (AUTO) 22.6 % (21.0-51.0); MEAN CORPUSCULAR HEMOGLOBIN 33.1 pg (27.0-34.0); MEAN CORPUSCULAR HGB CONC 35.9 g/dL (33.0-35.0); MEAN PLATELET VOLUME 8.9 fL (7.4-11.0); MONOCYTES # (AUTO) 0.5 x10^3/uL (0.3-0.8); MONOCYTES % (AUTO) 10.2 % (0.0-13.0); NEUTROPHILS % (AUTO) 60.1 % (42.0-75.0); PLATELET COUNT 161 X10^3/uL (150.0-450.0); RED CELL DISTRIBUTION WIDTH 12.9 % (11.6-16.5)
[2024-05-08 06:22] LABS: ALANINE AMINOTRANSFERASE 72 Units/L (12-78); ALBUMIN 2.8 g/dL (3.4-5.0); ALKALINE PHOSPHATASE 144 Units/L (46-116); ASPARTATE AMINO TRANSFERASE 38 Units/L (15-37); BLOOD UREA NITROGEN 13 mg/dL (7-18); CALCIUM 8.2 mg/dL (8.5-10.1); CARBON DIOXIDE 25.1 mmol/L (21-32); CHLORIDE 108 mmol/L (98-107); COR CA(FOR HYPOALB) 9.2 mg/dL (8.5-10.1); CREATININE 1.32 mg/dL (0.70-1.30); GLUCOSE 89 mg/dL (65-99); POTASSIUM 4.2 mmol/L (3.5-5.1); SODIUM 140 mmol/L (136-145); TOTAL PROTEIN 6.2 g/dL (6.4-8.2); eGFR NON BLACK RACES 57 (>60)
[2024-05-08] MEDS: ZOFRAN INJ 4 MG VIAL IVP PRN (08:38)
[2024-05-08 09:28] VITALS: BP 99/63; PULSE 84; RESP 20; TEMP 97.5
== END 2024-05-08 10:15 | disposition home or self-care (01) | DRG 683 ==
LOC: MED/SURG → OBSVTOIN 12:17
PROVIDERS: ADMIT Surgery; ATTEND Surgery
DX: Z93.3 Colostomy status; R53.1 Weakness; R19.7 Diarrhea, unspecified; N17.8 Other acute kidney failure; K90.829 Short bowel syndrome, unspecified; M62.81 Muscle weakness (generalized); Z85.038 Personal history of other malignant neoplasm of large intestine; R26.81 Unsteadiness on feet; E86.0 Dehydration